=== PATIENT | female | born 1945 | race Caucasian/White ===

== ENCOUNTER 2018-01-12 09:26 | Emergency (ER) | payer OTHER ==
[~2018-01-12] VITALS: Ht 160 cm; Wt 59.0 kg
[2018-01-12 09:30] VITALS: BP 177/78; PULSE 74; RESP 16; TEMP 98.5; O2SAT 99
--- NOTE | 2018-01-12 10:52 | RADRPT ---
EXAM DATE/TIME: 01/12/2018 10:27 [facility] COMPARISON: No previous studies available for comparison. INDICATIONS : Twist injury right foot and ankle, has pain and swelling, hurt all over MEDICAL HISTORY : None. SURGICAL HISTORY : None. ENCOUNTER: Initial ACUITY: 3 days PAIN SCORE: 10/10 LOCATION: Right foot FINDINGS: Mild degenerative changes are noted involving the first metatarsophalangeal and interphalangeal joint s. Plantar and Achilles calcaneal spurring is noted. There is no acute fracture or dislocation. Diff use osteoporosis is noted. CONCLUSION: 1. No acute fracture or dislocation. 2. Mild degenerative changes involving the first metatarsophalangeal and interphalangeal joints. 3. Plantar and Achilles calcaneous spurring. 4. Diffuse osteoporosis. Frank Hicks MD on January 12, 2018 at 10:48 Board Certified Radiologist. This report was verified electronically.
--- NOTE | 2018-01-12 11:17 | RADRPT ---
EXAM DATE/TIME: 01/12/2018 10:27 [facility] COMPARISON: No previous studies available for comparison. INDICATIONS : Twist injury right ankle and foot, pain and swelling MEDICAL HISTORY : None. SURGICAL HISTORY : None. ENCOUNTER: Initial ACUITY: 3 days PAIN SCORE: 10/10 LOCATION: Right ankle FINDINGS: Mild soft tissue swelling is noted involving the lateral malleolus. There is no acute fracture or dis location. The ankle mortise is intact. Prominent plantar calcaneal spur is noted. Osteopenia of the b ones is noted. Arthritic changes are noted involving the right midfoot. CONCLUSION: No acute fracture or dislocation. Prominent plantar calcaneal spur. Diffuse osteopenia. Midfoot arthr itis. Mild soft tissue swelling involving the lateral malleolus. Frank Hicks MD on January 12, 2018 at 11:13 Board Certified Radiologist. This report was verified electronically.
--- NOTE | 2018-01-12 11:30 | PD ---
HPI Chief Complaint: Injury Time Seen by Provider: 10:15 Travel History International Travel<30 days: No Contact w/Intl Traveler<30days: No Traveled to known affect area: No History of Present Illness HPI This is a 72-year-old female here with right ankle and foot pain after twisting injury yesterday. She reports she twisted the ankle while walking across she did not fall to the ground. She has pain with weightbearing and range of motion. Symptom severity is moderate. Aggravated by movement and slightly relieved with rest. Denies paresthesia or weakness of the foot. PFSH Past Medical History Medical History: Denies Significant Hx Influenza Vaccination: Yes ?: Not Past Surgical History Abdominal Surgery: Yes (GASTRIC BYPASS) Appendectomy: Yes Hysterectomy: Yes Social History Alcohol Use: No Tobacco Use: No Substance Use: No Allergies-Medications (Allergen,Severity, Reaction): Coded Allergies: No Known Allergies (Unverified , 01/12/18) Reported Meds & Prescriptions Reported Meds & Active Scripts Active No Active Prescriptions or Reported Medications Review of Systems Except as stated in HPI: all other systems reviewed are Neg General / Constitutional: No: Fever Eyes: No: Visual changes HENT: No: Headaches Cardiovascular: No: Chest Pain or Discomfort Respiratory: No: Shortness of Breath Gastrointestinal: No: Abdominal Pain Genitourinary: No: Dysuria Physical Exam Narrative GENERAL: Alert well-appearing 72-year-old female SKIN: Warm and dry. HEAD: Normocephalic. Atraumatic EYES: No injection or drainage. NECK: Supple CARDIOVASCULAR: Regular rate and rhythm RESPIRATORY: Breath sounds equal bilaterally. No accessory muscle use. GASTROINTESTINAL: Abdomen soft, non-tender, nondistended. MUSCULOSKELETAL: No cyanosis. Right lower extremity: +TTP and notable swelling over the lateral malleolus and dorsal aspect of the foot. The ankle is stable. No obvious deformity. 2+ DP pulse. Brisk cap refill. BACK: Nontender without obvious deformity. No CVA tenderness. Data Data Last Documented VS Vital Signs Date Time Temp Pulse Resp B/P (MAP) Pulse Ox O2 Delivery O2 Flow Rate FiO2 01/12/18 09:30 98.5 74 16 177/78 (111) 99 Orders Orders Foot, Limited (2vws) (01/12/18 ) Ankle, Limited (Ap&Lat) (01/12/18 ) Splint Or Brace Apply/Monitor (01/12/18 11:30) Ed Discharge Order (01/12/18 11:30) Brace Ankle Stirrup (01/12/18 ) MDM Medical Decision Making Medical Screen Exam Complete: Yes Emergency Medical Condition: Yes Differential Diagnosis Ankle sprain, ankle fracture, metatarsal fracture Narrative Course 72-year-old female here with ankle and foot pain after twisting injury. The extremity is neurovascularly intact. X-rays negative for fracture. Luis wrap and stirrup splint applied. Encouraged to use a cane for weightbearing. She was instructed ice and elevate the extremity. Diagnosis Primary Impression: Ankle sprain Qualified Codes: S93.401A - Sprain of unspecified ligament of right ankle, initial encounter Referrals: Primary Care Physician Additional Instructions: Ice and elevate the extremity Luis wrap and ankle stirrup splint for support. Follow-up the primary doctor. Scripts No Active Prescriptions or Reported Meds Disposition: 01 DISCHARGE HOME Condition: Stable Eileen Singleton Jan 12, 2018 11:30
== END 2018-01-12 12:00 | disposition home or self-care (01) ==
LOC: PHEFT 09:26
DX: S93.401A Sprain of unspecified ligament of right ankle, initial encounter (principal); X50.1XXA Overexertion from prolonged static or awkward postures, initial encounter; Y93.01 Activity, walking, marching and hiking
CPT/HCPCS: 73600; 73620; 99283; L1906